=== PATIENT | female | born 1985 | race American Indian/Alaskan Native ===

== ENCOUNTER 2017-10-07 18:33 | Emergency (ER) | payer OTHER ==
[2017-10-07] MEDS ORDERED: ASPIRIN PO ONE (19:57)
[2017-10-07 20:39] LABS: Basophils % (Auto) 0.4 % (0.0-1.8); Eosinophils # (Auto) 0.3 K/mm3 (0.0-0.4); Eosinophils % (Auto) 3.3 % (0.0-4.3); Hematocrit 35.4 % (30.3-42.9); Hemoglobin 11.8 gm/dl (10.1-14.3); Lymphocytes # (Auto) 2.4 K/mm3 (1.2-5.4); Lymphocytes % (Auto) 28.8 % (13.4-35.0); Mean Corpuscular HGB Conc 33 % (30-34); Mean Corpuscular Hemoglobin 30 pg (28-32); Mean Corpuscular Volume 89 fl (79-97); Monocytes # (Auto) 0.6 K/mm3 (0.0-0.8); Monocytes % (Auto) 7.3 % (0.0-7.3); Platelet Count 338 K/mm3 (140-440); Red Blood Count 3.99 M/mm3 (3.65-5.03); Red Cell Distribution Width 13.1 % (13.2-15.2)
[2017-10-07 20:57] LABS: BUN/Creatinine Ratio 10; Blood Urea Nitrogen 9 mg/dL (7-17); Calcium 8.8 mg/dL (8.4-10.2); Hemolysis Index 0
[2017-10-07] MEDS ORDERED: ZOFRAN ODT PO ONE (23:54)
[2017-10-07] MEDS ORDERED: CARAFATE PO ONE (23:54)
--- NOTE | 2017-10-07 23:54 | Emergency Department Report ---
ED General Adult HPI - General Chief complaint: Chest Pain Stated complaint: SWOLLEN NECK Time Seen by Provider: 10/07/17 23:44 Source: patient, RN notes reviewed Mode of arrival: Ambulatory Limitations: No Limitations - History of Present Illness Initial comments: This is a 32-year-old female. The patient is previously unknown to this provider. She does not have a local primary care doctor. Patient endorses a past medical history of multiple abdominal surgeries, including hysterectomy, left-sided oophorectomy, exploratory laparoscopy 2, thyroid disease, and Crook's disease. The patient presents to the ER with multiple complaints. The patient's first complaint is subjective anterior neck swelling. It has been present for 5 days. It is painless. It does not radiate anywhere. There is no stridor or dysphonia. The patient's next complaint is central chest pain. It has been present since 8 :00 yesterday morning. It is intermittent. It radiates to the left breast. It is associated with nausea and vomiting. There is no diaphoresis. There is no shortness of breath. There is no leg pain or leg swelling. No pulmonary embolus or DVT risk factors. No recent aspirin use, no recent cocaine use. The patient's next complaint is abdominal pain. It is periumbilical. It is sharp and achy. It does not radiate anywhere. It increases with palpation and decreases with rest. She endorses 3 episodes of nonbloody, nonbilious emesis. She is defecating normally, passing gas normally, reports no urinary symptoms. -: Gradual, days(s) Location: neck, chest, abdomen Radiation: non-radiation Quality: aching Consistency: intermittent Improves with: rest Worsens with: movement Associated Symptoms: chest pain, loss of appetite, malaise, nausea/vomiting. denies: confusion, cough, diaphoresis, fever/chills, headaches, rash, seizure, shortness of breath, syncope, weakness - Related Data Previous Rx's Medication Instructions Recorded Last Taken Type Ondansetron [Zofran Odt] 4 mg PO Q8HR PRN #20 tab.rapdis 10/08/17 Unknown Rx Promethazine HCl [Phenergan SUPPOS] 25 mg RC Q6HR PRN #15 supp.rect 10/08/17 Unknown Rx Promethazine [Phenergan TAB] 25 mg PO Q6HR PRN #20 tab 10/08/17 Unknown Rx Allergies Allergy/AdvReac Type Severity Reaction Status Date / Time acetaminophen [From Lortab] Allergy Unknown Verified 10/07/17 19:56 dexamethasone [From Decadron] Allergy Unknown Verified 10/07/17 19:56 dicyclomine [From Bentyl] Allergy Unknown Verified 10/07/17 19:55 hydrocodone [From Lortab] Allergy Unknown Verified 10/07/17 19:56 hydromorphone [From Dilaudid] Allergy Unknown Verified 10/07/17 19:56 metoclopramide [From Reglan] Allergy Unknown Verified 10/07/17 19:52 prochlorperazine Allergy Unknown Verified 10/07/17 19:56 [From Compazine] ED Review of Systems ROS: Stated complaint: SWOLLEN NECK Other details as noted in HPI ED Past Medical Hx - Past Medical History Hx Headaches / Migraines: Yes Additional medical history: Crook disease, Thryroid disease, ezema - Surgical History Past Surgical History?: Yes Additional Surgical History: 2 D&C, Hysterectomy, oopherectomy, tubal ligation, 2 . - Social History Smoking Status: Never Smoker Substance Use Type: None - Medications Home Medications: Home Medications Medication Instructions Recorded Confirmed Last Taken Type Ondansetron [Zofran Odt] 4 mg PO Q8HR PRN #20 tab.rapdis 10/08/17 Unknown Rx Promethazine HCl [Phenergan SUPPOS] 25 mg RC Q6HR PRN #15 supp.rect 10/08/17 Unknown Rx Promethazine [Phenergan TAB] 25 mg PO Q6HR PRN #20 tab 10/08/17 Unknown Rx ED Physical Exam - General Limitations: No Limitations General appearance: alert, in no apparent distress - Head Head exam: Present: atraumatic, normocephalic - Eye Eye exam: Present: normal appearance, EOMI. Absent: nystagmus - ENT ENT exam: Present: normal exam, normal orophraynx, mucous membranes moist, normal external ear exam - Neck Neck exam: Present: normal inspection, full ROM, other (there is no stridor or dysphonia. The patient is speaking in full sentences. The neck is supple. There is no deep space neck tenderness). Absent: tenderness, meningismus, lymphadenopathy, thyromegaly - Respiratory Respiratory exam: Present: normal lung sounds bilaterally, chest wall tenderness (there is reproducible central wall chest tenderness. During the chest examination, escorted by nursing Priscilla Gudino), other (bilateral breast exam within normal limits and nontender). Absent: respiratory distress - Cardiovascular Cardiovascular Exam: Present: regular rate, normal rhythm, normal heart sounds. Absent: systolic murmur, diastolic murmur, rubs, gallop - GI/Abdominal GI/Abdominal exam: Present: soft, tenderness, normal bowel sounds, other (there is periumbilical tenderness.). Absent: distended, guarding, rebound, rigid, pulsatile mass - Extremities Exam Extremities exam: Present: normal inspection, normal capillary refill. Absent: pedal edema, joint swelling, calf tenderness - Back Exam Back exam: Present: normal inspection, full ROM. Absent: tenderness, CVA tenderness (R), paraspinal tenderness, vertebral tenderness - Neurological Exam Neurological exam: Present: alert, oriented X3, CN II-XII intact, normal gait, other (Extraocular movements intact. Tongue midline. No facial droop. Facial sensation intact to light touch in the V1, V2, V3 distribution bilaterally. 5 and 5 strength in 4 extremities.. Sensation is intact to light touch in 4 extremities.). Absent: motor sensory deficit - Psychiatric Psychiatric exam: Present: normal affect, normal mood - Skin Skin exam: Present: warm, dry, intact, normal color. Absent: rash ED Course Vital Signs 10/07/17 10/07/17 10/07/17 19:45 23:42 23:46 Temperature 98.2 F Pulse Rate 92 H 86 96 H Respiratory 18 10 L 17 Rate Blood Pressure 117/75 119/74 O2 Sat by Pulse 98 Oximetry 10/08/17 10/08/17 00:00 00:25 Temperature Pulse Rate 83 Respiratory 16 18 Rate Blood Pressure 113/64 O2 Sat by Pulse 99 Oximetry - Reevaluation(s) Reevaluation #1: 10/08/17 00:54 Differential diagnosis, including but not limited to: bowel obstruction, inflammatory bowel disease, irritable bowel disease, endometriosis, cyclic vomiting syndrome, narcotic bowel syndrome, costochondritis, hiatal hernia Assessment and plan: 32-year-old female with multiple complaints. Complaint 1: In terms of patient's neck complaint, I do not appreciate any discernible swelling or disfiguration to the neck. She has no clinical indication of upper airway compromise, there is no stridor or dysphonia. Furthermore, there is full range of motion to the neck, the patient is noted to be playing on a cellular phone. She can follow up with a primary care doctor for this. Complaint 2, chest wall pain: Chest wall pain is reproducible. Troponin negative 3. Low risk by TYLER score, low risk by heart score, no pulmonary embolus or DVT risk factors, low risk by well's criteria, perc negative. EKG unremarkable 2. Patient at low risk for major adverse cardiac event, and she can follow up with outpatient primary care doctor and her educational program director for her atypical chest pain given low risk profile. Complaint #3, abdominal pain and nausea and vomiting: Patient has not had any witnessed vomiting to my eyes. However, she endorsed to the nurse that she threw up Carafate and oral Zofran in the bathroom. Given her numerous abdominal surgeries and endorsed abdominal discomfort and nausea and vomiting, we will obtain CT scan of the abdomen and pelvis. Patient had minimal periumbilical tenderness, with normal bowel sounds, I think obstruction is unlikely. Reevaluation #2: 10/08/17 02:22 CT scan pending. No active vomiting. Feels nauseous. Requesting Phenergan. Specifically states she is not allergic to Phenergan Reevaluation #3: 10/08/17 02:41 Patient has been reevaluated multiple times by myself and the nurse to stay here in the ER. There is no active vomiting at either of us have seen for about 8 hours. Patient noted to be texting on and playing on the phone multiple times without difficulty. Noncontrast CT scan negative for obstruction , suggest constipation. Patient advised as to the importance of diet and lifestyle modifications, she does request a Phenergan suppository which she will be given here in the ER, and she can follow up with an outpatient primary care doctor and/or immigration attorney for her constipation. ED Medical Decision Making - Lab Data Result diagrams: 10/07/17 20:17 10/07/17 20:17 Vital Signs 10/07/17 10/07/17 10/07/17 19:45 23:42 23:46 Temperature 98.2 F Pulse Rate 92 H 86 96 H Respiratory 18 10 L 17 Rate Blood Pressure 117/75 119/74 O2 Sat by Pulse 98 Oximetry 10/08/17 10/08/17 00:00 00:25 Temperature Pulse Rate 83 Respiratory 16 18 Rate Blood Pressure 113/64 O2 Sat by Pulse 99 Oximetry Lab Results 10/07/17 10/07/17 10/07/17 Range/Units 20:17 20:17 20:17 WBC 8.4 (4.5-11.0) K/mm3 RBC 3.99 (3.65-5.03) M/mm3 Hgb 11.8 (10.1-14.3) gm/dl Hct 35.4 (30.3-42.9) % MCV 89 (79-97) fl MCH 30 (28-32) pg MCHC 33 (30-34) % RDW 13.1 L (13.2-15.2) % Plt Count 338 (140-440) K/mm3 Lymph % (Auto) 28.8 (13.4-35.0) % Pitt % (Auto) 7.3 (0.0-7.3) % Eos % (Auto) 3.3 (0.0-4.3) % Baso % (Auto) 0.4 (0.0-1.8) % Lymph # 2.4 (1.2-5.4) K/mm3 Pitt # 0.6 (0.0-0.8) K/mm3 Eos # 0.3 (0.0-0.4) K/mm3 Baso # 0.0 (0.0-0.1) K/mm3 Seg Neutrophils % 60.2 (40.0-70.0) % Seg Neutrophils # 5.0 (1.8-7.7) K/mm3 Sodium 136 L (137-145) mmol/L Potassium 4.5 (3.6-5.0) mmol/L Chloride 97.4 L (98-107) mmol/L Carbon Dioxide 29 (22-30) mmol/L Anion Gap 14 mmol/L BUN 9 (7-17) mg/dL Creatinine 0.9 (0.7-1.2) mg/dL Estimated GFR > 60 ml/min BUN/Creatinine Ratio 10 % Glucose 112 H (65-100) mg/dL Calcium 8.8 (8.4-10.2) mg/dL Troponin T < 0.010 (0.00-0.029) ng/mL HCG, Qual Negative (Negative) Urine Bilirubin (Negative) Urine RBC (Auto) (0.0-6.0) /HPF U Epithel Cells (Auto) (0-13.0) /HPF 10/07/17 10/08/17 10/08/17 Range/Units 22:53 00:06 00:24 WBC (4.5-11.0) K/mm3 RBC (3.65-5.03) M/mm3 Hgb (10.1-14.3) gm/dl Hct (30.3-42.9) % MCV (79-97) fl MCH (28-32) pg MCHC (30-34) % RDW (13.2-15.2) % Plt Count (140-440) K/mm3 Lymph % (Auto) (13.4-35.0) % Pitt % (Auto) (0.0-7.3) % Eos % (Auto) (0.0-4.3) % Baso % (Auto) (0.0-1.8) % Lymph # (1.2-5.4) K/mm3 Pitt # (0.0-0.8) K/mm3 Eos # (0.0-0.4) K/mm3 Baso # (0.0-0.1) K/mm3 Seg Neutrophils % (40.0-70.0) % Seg Neutrophils # (1.8-7.7) K/mm3 Sodium (137-145) mmol/L Potassium (3.6-5.0) mmol/L Chloride (98-107) mmol/L Carbon Dioxide (22-30) mmol/L Anion Gap mmol/L BUN (7-17) mg/dL Creatinine (0.7-1.2) mg/dL Estimated GFR ml/min BUN/Creatinine Ratio % Glucose (65-100) mg/dL Calcium (8.4-10.2) mg/dL Troponin T < 0.010 < 0.010 (0.00-0.029) ng/mL HCG, Qual (Negative) Urine Bilirubin Neg (Negative) Urine RBC (Auto) 1.0 (0.0-6.0) /HPF U Epithel Cells (Auto) 5.0 (0-13.0) /HPF - EKG Data -: EKG Interpreted by Me - EKG Data 10/08/17 00:56 EKG #1 demonstrates normal sinus, 73 bpm, normal axis, not morphologically consistent with ST elevation myocardial infarction. TC within normal limits, Q waves noted in the inferior leads. EKG #2 was unremarkable and unchanged. - Radiology Data Radiology results: report reviewed, image reviewed X-ray of the chest, interpreted by radiology: No acute disease CT scan of the abdomen and pelvis: int Report Referring Physician: TENZIN JOHN Patient Name: MARIELLE DODD Date of : 1985 Sex: Female Report Date: 2017-10-07 Report Status: Finalized Findings [facility] [address] [place] [address] Cat Scan Report Signed Patient: MARIELLE DODD MR#: [id number] : 1985 Acct:[id number] Age/Sex: 32 / F ADM Date: 10/07/17 Loc: ED Attending Dr: Ordering Physician: TENZIN JOHN MD Date of Service: 10/08/17 Procedure(s): CT abdomen pelvis wo con Accession Number(s): [id number] cc: TENZIN JOHN MD FINAL REPORT EXAM: CT ABDOMEN PELVIS WO CON HISTORY: abd pain n/v TECHNIQUE: Routine axial imaging was obtained of the abdomen and pelvis without oral or IV contrast sagittal and coronal reconstructions were reviewed. FINDINGS: The lung bases are clear. Pleural fluid is not seen. The liver, gallbladder, pancreas, spleen, and adrenal glands appear normal. The kidneys show no evidence of stones or hydronephrosis. The bowel loops are normal in caliber and course. There is a moderate amount retained feces in the colon. The appendix is not enlarged. There are a few uncomplicated diverticula in the sigmoid colon. The bladder appears normal. Free fluid is not seen. The skeletal structures do not show any acute changes. IMPRESSION: No acute process in the abdomen and pelvis. Several uncomplicated diverticula in the sigmoid colon. Transcribed By: RB Dictated By: MARTINA AU MD Electronically Authenticated By: MARTINA AU MD Signed Date/Time: 10/07/17 5005 Critical care attestation.: If time is entered above; I have spent that time in minutes in the direct care of this critically ill patient, excluding procedure time. ED Disposition Clinical Impression: Chest wall pain, Abdominal pain, History of nausea Disposition: DC-01 TO HOME OR SELFCARE Is pt being admited?: No Does the pt Need Aspirin: No Condition: Stable Instructions: Costochondritis (ED), Constipation (ED), High Fiber Diet (ED) Additional Instructions: Increased work consumption to 6-8 cups of water a day. Eat plenty of fruits, fibers, green vegetables. CT scan suggested constipation which is most likely cause of the abdominal pain, nausea and vomiting. This typically takes 3-4 weeks to resolve. Follow-up with the primary care doctor or immigration attorney for this within the next month. Follow-up with the primary care doctor or educational program director for your chest wall pain within the next 5 days. Return to the ER right away with new pain, worsened pain, migration of pain, intractable nausea or vomiting, confusion, inability to tolerate liquid feeds. Referrals: TENZIN BARRERA MD [Primary Care Provider] - 3-5 Days CHRIS MOLINA MD [Staff Physician] - 3-5 Days [facility] [Provider Group] - 3-5 Days [facility] [Provider Group] - 3-5 Days
--- NOTE | 2017-10-08 00:45 | XRay Report ---
FINAL REPORT EXAM: XR CHEST ROUTINE 2V HISTORY: chest wall pain TECHNIQUE: Two views of the chest were submitted. FINDINGS: Heart size and mediastinum appear normal. The lungs are clear. Pleural fluid is not seen. The bones and soft tissues appear normal. IMPRESSION: Normal chest.
[2017-10-08 00:47] LABS: Amorphous Crystals,Urine 1+; Bilirubin,Urine NEG (Negative); Blood,Urine NEG (Negative); Color,Urine Yellow (Yellow); Nitrite,Urine NEG (Negative); Protein,Urine <15 mg/dL mg/dL (Negative); Urobilinogen,Urine < 2.0 mg/dL (<2.0)
[2017-10-08] MEDS ORDERED: DILAUDID IV ONE (00:50)
[2017-10-08] MEDS ORDERED: NACL 0.9% 250ML 250 ML IV ONE (00:50)
[2017-10-08] MEDS ORDERED: ZOFRAN IV ONE (00:51)
[2017-10-08] MEDS ORDERED: NACL ONE (01:14)
[2017-10-08] MEDS ORDERED: MORPHINE ONE (02:19)
[2017-10-08] MEDS ORDERED: PHENERGAN PR ONE (02:20)
[2017-10-08] MEDS ORDERED: MORPHINE IV ONE (02:21)
--- NOTE | 2017-10-08 02:24 | Cat Scan Report ---
FINAL REPORT EXAM: CT ABDOMEN PELVIS WO CON HISTORY: abd pain n/v TECHNIQUE: Routine axial imaging was obtained of the abdomen and pelvis without oral or IV contrast sagittal and coronal reconstructions were reviewed. FINDINGS: The lung bases are clear. Pleural fluid is not seen. The liver, gallbladder, pancreas, spleen, and adrenal glands appear normal. The kidneys show no evidence of stones or hydronephrosis. The bowel loops are normal in caliber and course. There is a moderate amount retained feces in the colon. The appendix is not enlarged. There are a few uncomplicated diverticula in the sigmoid colon. The bladder appears normal. Free fluid is not seen. The skeletal structures do not show any acute changes. IMPRESSION: No acute process in the abdomen and pelvis. Several uncomplicated diverticula in the sigmoid colon.
[2017-10-08 03:09] VITALS: BP 102/61
== END 2017-10-08 04:15 | disposition home or self-care (01) ==
LOC: ED 18:33
DX: R07.89 Other chest pain (principal); E07.9 Disorder of thyroid, unspecified; Z90.710 Acquired absence of both cervix and uterus; Z90.721 Acquired absence of ovaries, unilateral; Z98.51 Tubal ligation status
CPT/HCPCS: 36415; 71046; 74176; 80048; 81001; 84484; 84703; 85025; 93005; 93010; 96374; 96375; 99284; J2270; J2405; J7050; J1170; Q0162